=== PATIENT | female | born 1955 | race Asian ===

== ENCOUNTER 2016-09-26 10:07 | Outpatient (CLI) | payer OTHER ==
--- NOTE | 2016-09-28 07:42 | DEXA Report ---
DEXA SCAN: 09/26/2016 CLINICAL INDICATION: Postmenopausal. TECHNIQUE: Dual energy x-ray absorptiometry (DXA) was performed on a [employer] system. Regions measured are the AP spine, femoral neck, and, if needed, forearm. COMPARISON: None. In accordance with the International Society for Clinical Densitometry (ISCD) guidelines, data from previous exams may be reanalyzed using current recommendations and techniques. This is done to allow a more accurate basis for comparison with the current study. FINDINGS: The data for the lumbar spine is as follows: REGION BMD (g/cm/cm) T-SCORE Z-SCORE L1 0.957 -1.4 0.0 L2 0.974 -1.9 -0.5 L3 1.013 -1.6 -0.2 L4 0.982 -1.8 -0.4 TOTAL 0.982 -1.6 -0.3 NOTE: All evaluable vertebrae are used for classification. The data for the hip is as follows: REGION BMD (g/cm/cm) T-SCORE Z-SCORE Neck 0.827 -1.5 -0.2 TOTAL 0.852 -1.2 -0.2 NOTE: The femoral neck or total proximal femur, whichever is lowest, is used for classification. IMPRESSION: THE WHO CLASSIFICATION BASED ON THE INTERNATIONAL REFERENCE STANDARD IS OSTEOPENIA. THE FRACTURE RISK IS INCREASED. RECOMMENDATION: Patients with diagnosis of osteoporosis or osteopenia should have regular bone mineral density assessment. For those eligible for Medicare, routine testing is allowed once every 2 years. Testing frequency can be increased for patients who have rapidly progressing disease or for those who are receiving medical therapy to restore bone mass. COMMENT: World Health Organization (WHO) definitions for osteoporosis and osteopenia: NORMAL BMD: T-score at -1.0 or higher, fracture risk is low. OSTEOPENIA BMD: T-score between -1.0 and -2.5, fracture risk is increased. OSTEOPOROSIS BMD: T-score at -2.5 or lower, fracture risk high. National Osteoporosis Foundation recommends: 1. Obtain adequate dietary calcium (at least 1200 mg per day) and vitamin D (400 -800 international units per day). 2. Participate, as appropriate, in regular weightbearing and muscle- strengthening exercise. 3. Avoid tobacco use and reduce alcohol and caffeine intake. 4. For more detailed information see the website at www.NOF.org. MTDD
== END 2016-09-26 10:08 | disposition home or self-care (01) ==
LOC: DI 10:07
PROVIDERS: ATTEND Family Medicine
DX: Z13.820 Encounter for screening for osteoporosis (principal); M85.89 Other specified disorders of bone density and structure, multiple sites
CPT/HCPCS: 77080

== ENCOUNTER 2017-08-02 12:25 | Emergency (ER) | payer OTHER ==
[2017-08-02 13:28] LABS: BASOPHILS % (AUTO) 0.4 %; HGB - HEMOGLOBIN 11.1 g/dL (12.0-16.0); LYMPHOCYTES # (AUTO) 0.3 10^3/uL (1.5-3.5); LYMPHOCYTES % (AUTO) 5.6 %; MEAN CORPUSCULAR HEMOGLOBIN 18.9 pg (27.0-31.0); MEAN CORPUSCULAR HGB CONC 31.9 g/dL (32.0-36.0); MEAN CORPUSCULAR VOLUME 59.1 fL (81.0-99.0); MEAN PLATELET VOLUME 8.6 fL (7.9-10.8); MONOCYTES # (AUTO) 0.9 10^3/uL (0.0-1.0); MONOCYTES % (AUTO) 17.6 %; NEUTROPHILS # (AUTO) 3.8 10^3/uL (1.5-6.6); NEUTROPHILS % (AUTO) 76.4 %; PLT - PLATELET COUNT 121 10^3/uL (130-450); RED BLOOD COUNT 5.89 10^6/uL (4.20-5.40); RED CELL DISTRIBUTION WIDTH 15.6 % (12.0-15.0)
[2017-08-02 13:36] LABS: ALBUMIN/GLOBULIN RATIO 1.1 (1.0-2.2); CALCIUM 8.8 mg/dL (8.5-10.3); CREATININE 0.8 mg/dL (0.4-1.0); TOTAL PROTEIN 7.5 g/dL (6.7-8.2)
[2017-08-02 14:33] LABS: BILIRUBIN,URINE NEGATIVE (NEGATIVE); GLUCOSE, URINE (UA) NEGATIVE (NEGATIVE); KETONES,URINE (UA) NEGATIVE (NEGATIVE); LEUKOCYTE ESTERASE, URINE NEGATIVE (NEGATIVE); NITRITE,URINE NEGATIVE (NEGATIVE); OCCULT BLOOD,URINE NEGATIVE (NEGATIVE); PROTEIN,URINE 30 mg/dL (NEGATIVE); UROBILINOGEN,URINE 0.2 (NORMAL) E.U./dL (NORMAL)
[2017-08-02 14:34] LABS: CLARITY,URINE CLEAR (CLEAR)
[2017-08-02 14:41] LABS: BACTERIA,URINE Many /HPF (None Seen); RBC,URINE 0-5 /HPF (0-5); SQUAMOUS EPITHELIAL CELL,UR MANY Squamous (<= Few)
[2017-08-02 14:42] LABS: MUCUS,URINE Marked Strands
[2017-08-02] MEDS ORDERED: cefTRIAXone 1 GM VIAL IM STA (15:13)
[2017-08-02] MEDS ORDERED: LIDOCAINE 1% 2 ML VIAL SUBQ ONE (15:13)
[2017-08-02] MEDS ORDERED: KETOROLAC 60 MG/2 ML VIAL IM STA (15:13)
[2017-08-02] MEDS ORDERED: SODIUM CHLORIDE 0.9% 1,000 ML IV ONE (15:15)
[2017-08-02] MEDS ORDERED: KETOROLAC 60 MG/2 ML VIAL IVP STA (15:15)
[2017-08-02] MEDS ORDERED: CIPROFLOXACIN 400 MG/200 ML 200 ML IV ONE (15:16)
--- NOTE | 2017-08-02 17:03 | ED Physician Documentation ---
History of Present Illness - Stated complaint Stated Complaint: R SIDE PX/FEVER/CHILLS - Chief complaint Chief Complaint: Fever - History obtained from History obtained from: Patient, Family - History of Present Illness Timing: Yesterday Pain level max: 8 Pain level now: 8 Improved by: tylenol Worsened by: nothing - Additonal information Additional information: Patient is a 62-year-old female who presents to the emergency department with right flank pain for the past 2 days. Also fevers and chills. Has had mild dysuria and increased urinary frequency. No hematuria. No nausea or vomiting. Review of Systems Ten Systems: 10 systems reviewed and negative Constitutional: reports: Fever, Chills Ears: denies: Ear pain Nose: denies: Rhinorrhea / runny nose, Congestion Throat: denies: Sore throat Cardiac: denies: Chest pain / pressure Respiratory: denies: Cough GI: denies: Nausea, Vomiting, Diarrhea, Hematemesis, Bloody / black stool : reports: Dysuria, Frequency Skin: denies: Rash Musculoskeletal: denies: Neck pain, Back pain Neurologic: denies: Focal weakness, Numbness, Headache PD PAST MEDICAL HISTORY - Past Medical History Past Medical History: No - Past Surgical History Past Surgical History: Yes /PACKING INSPECTOR: Hysterectomy - Present Medications Home Medications: Ambulatory Orders Medication Instructions Recorded Confirmed Ciprofloxacin HCl [Cipro] 500 mg PO BID #20 tablet 08/02/17 Meloxicam [Mobic] 7.5 mg PO BID PRN #20 tablet 08/02/17 - Allergies Allergies/Adverse Reactions: Allergies Allergy/AdvReac Type Severity Reaction Status Date / Time amoxicillin Allergy Mild Hives Verified 08/02/17 12:34 - Social History Does the pt smoke?: No Smoking Status: Never smoker Does the pt drink ETOH?: No Does the pt have substance abuse?: No - Immunizations Immunizations are current?: Yes PD ED PE NORMAL - Vitals Vital signs reviewed: Yes - General General: Alert and oriented X 3, No acute distress - HEENT HEENT: PERRL, Moist mucous membranes - Neck Neck: Supple, no meningeal sign - Cardiac Cardiac: RRR, Strong equal pulses - Respiratory Respiratory: No respiratory distress, Clear bilaterally - Abdomen Abdomen: Soft, Non tender, Non distended - Back Back: No spinal TTP, Other (R CVAT) - Derm Derm: Warm and dry - Extremities Extremities: No edema, No calf tenderness / cord - Neuro Neuro: Alert and oriented X 3 - Psych Psych: Normal mood, Normal affect Results - Vitals Vitals: Vital Signs - 24 hr 08/02/17 08/02/17 08/02/17 12:29 16:35 17:04 Temperature 38.8 C H 36.6 C Heart Rate 127 H 89 88 Respiratory 18 18 16 Rate Blood Pressure 128/68 118/57 L 133/60 H O2 Saturation 97 98 96 Oxygen O2 Source Room air - Labs Labs: Laboratory Tests 08/02/17 08/02/17 08/02/17 13:15 13:15 13:15 WBC 5.0 Corrected WBC Cancelled RBC 5.89 H Hgb 11.1 L Hct 34.8 L MCV 59.1 L MCH 18.9 L MCHC 31.9 L RDW 15.6 H Plt Count 121 L MPV 8.6 Neut # 3.8 Lymph # 0.3 L [place] # 0.9 Eos # 0.0 Baso # 0.0 Absolute Nucleated RBC 0.01 Total Counted Cancelled Neutrophils % (Manual) Cancelled Band Neuts % (Manual) Cancelled Lymphocytes % (Manual) Cancelled Reactive Lymphs % (Man) Cancelled Abnorm Lymph % (Manual) Cancelled Monocytes % (Manual) Cancelled Eosinophils % (Manual) Cancelled Basophils % (Manual) Cancelled Metamyelocytes % Cancelled Myelocytes % Cancelled Promyelocytes % Cancelled Blast Cells % Cancelled Plasma Cell % (Manual) Cancelled Other Cells % Cancelled Nucleated RBC % 0.1 Neutrophils # (Manual) Cancelled Lymphocytes # (Manual) Cancelled Monocytes # (Manual) Cancelled Eosinophils # (Manual) Cancelled Basophils # (Manual) Cancelled Nucleated RBCs Cancelled Differential Comment Cancelled RBC Morph Micro Appear 1+ SCHISTOCYTES Sodium 135 Potassium 3.9 Chloride 99 L Carbon Dioxide 27 Anion Gap 9.0 BUN 20 Creatinine 0.8 Estimated GFR (MDRD) 73 L Glucose 117 H Lactic Acid 1.0 Calcium 8.8 Total Bilirubin 1.0 AST 36 ALT 28 Alkaline Phosphatase 62 Total Protein 7.5 Albumin 4.0 Globulin 3.5 Albumin/Globulin Ratio 1.1 Lipase 62 H Urine Color Urine Clarity Urine pH Ur Specific [place] Urine Protein Urine Glucose (UA) Urine Ketones Urine Occult Blood Urine Nitrite Urine Bilirubin Urine Urobilinogen Ur Leukocyte Esterase Urine RBC Urine WBC Ur Squamous Epith Cells Urine Bacteria Urine Mucus Ur Microscopic Review Urine Culture Comments 08/02/17 14:24 WBC Corrected WBC RBC Hgb Hct MCV MCH MCHC RDW Plt Count MPV Neut # Lymph # [place] # Eos # Baso # Absolute Nucleated RBC Total Counted Neutrophils % (Manual) Band Neuts % (Manual) Lymphocytes % (Manual) Reactive Lymphs % (Man) Abnorm Lymph % (Manual) Monocytes % (Manual) Eosinophils % (Manual) Basophils % (Manual) Metamyelocytes % Myelocytes % Promyelocytes % Blast Cells % Plasma Cell % (Manual) Other Cells % Nucleated RBC % Neutrophils # (Manual) Lymphocytes # (Manual) Monocytes # (Manual) Eosinophils # (Manual) Basophils # (Manual) Nucleated RBCs Differential Comment RBC Morph Micro Appear Sodium Potassium Chloride Carbon Dioxide Anion Gap BUN Creatinine Estimated GFR (MDRD) Glucose Lactic Acid Calcium Total Bilirubin AST ALT Alkaline Phosphatase Total Protein Albumin Globulin Albumin/Globulin Ratio Lipase Urine Color YELLOW Urine Clarity CLEAR Urine pH 6.0 Ur Specific [place] >=1.030 H Urine Protein 30 H Urine Glucose (UA) NEGATIVE Urine Ketones NEGATIVE Urine Occult Blood NEGATIVE Urine Nitrite NEGATIVE Urine Bilirubin NEGATIVE Urine Urobilinogen 0.2 (NORMAL) Ur Leukocyte Esterase NEGATIVE Urine RBC 0-5 Urine WBC 0-3 Ur Squamous Epith Cells MANY Squamous H Urine Bacteria Many H Urine Mucus Marked Strands Ur Microscopic Review INDICATED Urine Culture Comments NOT INDICATED PD MEDICAL DECISION MAKING - ED course Complexity details: reviewed results, re-evaluated patient, considered differential, d/w patient, d/w family ED course: Patient is a 62-year-old female who presents to the emergency department with right flank pain and fever for the past 24 hours. No abdominal tenderness. No tenderness over the gallbladder or the appendix. She does have right CVA tenderness as well as some urinary symptoms. No acute laboratory findings. Normal lactate. Tachycardia resolved with pain medication and IV fluids. She is very well-appearing, nontoxic. Does have significant bacteriuria. Given Cipro IV here and will place her on ciprofloxacin for home. She does have a significant penicillin allergy/amoxicillin. Will have her follow-up closely with her doctor and return if she fails to improve in the next 24-48 hours for repeat evaluation. Patient and family counseled regarding signs and symptoms for which I believe and urgent re-evaluation would be necessary. Patient with good understanding of and agreement to plan and is comfortable going home at this time This document was made in part using voice recognition software. While efforts are made to proofread this document, sound alike and grammatical errors may occur. Departure - Departure Disposition: 01 Home, Self Care Clinical Impression: Pyelonephritis Fever Qualifiers: Fever type: unspecified Qualified Code(s): R50.9 - Fever, unspecified Condition: Good Instructions: ED Kidney Infec Female Follow-Up: MORENA DRAKE DO [Primary Care Provider] - Within 3 Days Prescriptions: Ciprofloxacin HCl [Cipro] 500 mg PO BID #20 tablet Meloxicam [Mobic] 7.5 mg PO BID PRN #20 tablet PRN Reason: Pain Comments: Take all medications until gone. Return if you worsen. You should continue to improve over the next 2 days. Discharge Date/Time: 08/02/17 17:15
[2017-08-02 17:05] VITALS: BP 133/60
== END 2017-08-02 17:15 | disposition home or self-care (01) ==
LOC: ED 12:25
DX: N12 Tubulo-interstitial nephritis, not specified as acute or chronic (principal); R00.0 Tachycardia, unspecified
CPT/HCPCS: 36415; 80053; 81001; 81003; 83605; 83690; 85025; 87086; 96365; 96375; 99283; 99284

== ENCOUNTER 2020-02-17 09:20 | Outpatient (CLI) | payer OTHER ==
--- NOTE | 2020-02-24 13:34 | Mammography Report ---
BILATERAL DIGITAL SCREENING MAMMOGRAM 3D/2D: 02/17/2020 CLINICAL: Routine screening. No prior exams were available for comparison. There are scattered fibroglandular elements in both br easts. No significant masses, calcifications, or other findings are seen in either breast. IMPRESSION: NEGATIVE There is no mammographic evidence of malignancy. A 1 year screening mammogram is recommended. This exam was interpreted at Station ID: [id number]. NOTE: For mammograms, a report in lay terms will be sent to the patient. Approximately 15% of breast malignancies will not be visualized mammographically. In the management of a palpable breast mass, a negative mammogram must not discourage biopsy of a clinically suspicious lesion. Electronically Signed By: Jorden manuel/librado:02/24/2020 09:00:02 ACR BI-RADS Category 1: Negative 3341F PARENCHYMAL PATTERN: (A) - The breast(s) demonstrate(s) scattered fibroglandular densities. BI-RADS CATEGORY: (1) - 1 RECOMMENDATION: (ANNUAL) - Recommend routine annual screening mammography. [id number] 1 year screening LATERALITY: (B)
== END 2020-02-17 09:21 | disposition home or self-care (01) ==
LOC: DI.N 09:20
DX: Z12.31 Encounter for screening mammogram for malignant neoplasm of breast (principal)

== ENCOUNTER 2021-03-08 15:27 | Outpatient (CLI) | payer OTHER ==
--- NOTE | 2021-03-09 14:03 | Mammography Report ---
BILATERAL DIGITAL SCREENING MAMMOGRAM 3D/2D: 03/08/2021 CLINICAL: Routine screening. Comparison is made to exams dated: 02/12/2019 mammogram - [facility] and 02/17/2020 m ammogram - [facility]. There are scattered fibroglandular elements in both breasts . No significant masses, calcifications, or other findings are seen in either breast. There has been no significant interval change. IMPRESSION: NEGATIVE There is no mammographic evidence of malignancy. A 1 year screening mammogram is recommended. This exam was interpreted at Station ID: [id number]. NOTE: For mammograms, a report in lay terms will be sent to the patient. Approximately 15% of breast malignancies will not be visualized mammographically. In the management of a palpable breast mass, a negative mammogram must not discourage biopsy of a clinically suspicious lesion. Electronically Signed By: Murphy Mercado acr/penrad:03/08/2021 16:13:24 ACR BI-RADS Category 1: Negative 3341F PARENCHYMAL PATTERN: (A) - The breast(s) demonstrate(s) scattered fibroglandular densities. BI-RADS CATEGORY: (1) - 1 RECOMMENDATION: (ANNUAL) - Recommend routine annual screening mammography. [id number] 1 year screening LATERALITY: (B)
== END 2021-03-08 15:28 | disposition home or self-care (01) ==
LOC: DI.N 15:27
DX: Z12.31 Encounter for screening mammogram for malignant neoplasm of breast (principal)

== ENCOUNTER 2021-07-19 10:47 | Outpatient (CLI) | payer OTHER ==
--- NOTE | 2021-07-19 11:42 | DEXA Report ---
PROCEDURE: Dexa Spine and/or Hip INDICATIONS: MENOPAUSAL TECHNIQUE: Dual energy x-ray absorptiometry (DXA) was performed on a [employer] System. Regions measur ed are the AP Spine, femoral neck, and if needed forearm. COMPARISON: 09/26/2016. FINDINGS: Lumbar Spine: Bone Mineral Density 0.950 g/cm/cm,T score -1.9. There is interval 3.3% decrease in total lumbar b one mineral density. Left Hip: Bone Mineral Density 0.851 g/cm/cm,T score -1.2 . There is interval 0.1% decrease in total left hip bone mineral density. Left Femoral Neck: Bone Mineral Density 0.839 g/cm/cm, T score -1.4. (T score greater or equal to -1.0: NORMAL) (T score from -1.1 to -2.4: OSTEOPENIA) (T score less than or equal to -2.5 to: OSTEOPOROSIS) Impression: Osteopenia. Patients with diagnosis of osteoporosis or osteopenia should have regular bone mineral density assess ment. For those eligible for Medicare, routine testing is allowed once every 2 years. Testing frequ ency can be increased for patients who have rapidly progressing disease or for those who are receivin g medical therapy to restore bone mass. Reviewed by: Catracho Pruett MD on 07/19/2021 11:41 AM PDT Approved by: Catracho Pruett MD on 07/19/2021 11:41 AM PDT Station ID: [id number]
== END 2021-07-19 10:48 | disposition home or self-care (01) ==
LOC: DI 10:47
PROVIDERS: ATTEND Internal Medicine
DX: N95.1 Menopausal and female climacteric states (principal); M85.89 Other specified disorders of bone density and structure, multiple sites

== ENCOUNTER 2022-03-15 14:34 | Outpatient (CLI) | payer OTHER ==
--- NOTE | 2022-03-16 13:32 | Mammography Report ---
BILATERAL DIGITAL SCREENING MAMMOGRAM 3D/2D: 03/15/2022 CLINICAL: Routine screening. Comparison is made to exams dated: 03/08/2021 mammogram, 02/17/2020 mammogram - [facility], and 02/12/2019 mammogram - [facility]. There are scattered areas of fibroglandular density in both breasts (category b / 25%-50% glandular t issue). No significant masses, calcifications, or other findings are seen in either breast. There has been no significant interval change. IMPRESSION: NEGATIVE There is no mammographic evidence of malignancy. A 1 year screening mammogram is recommended. Based on the Tyrer Cuzick model (a risk assessment model) the patients lifetime risk is 6.2% and her 10 year risk is 2.9%. According to the ACR, ACS, and NCCN guidelines, an annual breast MRI exam ambrose g with mammogram is recommended if the patients lifetime risk is 20% or greater. This exam was interpreted at Station ID: [id number]. NOTE: For mammograms, a report in lay terms will be sent to the patient. Approximately 15% of breast malignancies will not be visualized mammographically. In the management of a palpable breast mass, a negative mammogram must not discourage biopsy of a clinically suspicious lesion. Electronically Signed By: Jorden manuel/librado:03/15/2022 15:21:28 ACR BI-RADS Category 1: Negative 3341F PARENCHYMAL PATTERN: (A) - The breast(s) demonstrate(s) scattered fibroglandular densities. BI-RADS CATEGORY: (1) - 1 RECOMMENDATION: (ANNUAL) - Recommend routine annual screening mammography. [id number] 1 year screening LATERALITY: (B)
== END 2022-03-15 14:35 | disposition home or self-care (01) ==
LOC: DI.N 14:34
DX: Z12.31 Encounter for screening mammogram for malignant neoplasm of breast (principal)

== ENCOUNTER 2023-02-28 08:42 | Outpatient (CLI) | payer MEDICARE, OTHER ==
--- NOTE | 2023-03-01 09:39 | Mammography Report ---
BILATERAL DIGITAL SCREENING MAMMOGRAM 3D/2D: 02/28/2023 CLINICAL: Routine screening. Comparison is made to exams dated: 03/15/2022 mammogram, 03/08/2021 mammogram, 02/17/2020 mammogram - [facility], and 02/12/2019 mammogram - [facility]. Both breasts are heterogeneously dense, which may obscure small masses (category c / 51-75% glandular tissue). No significant masses, calcifications, or other findings are seen in either breast. There has been no significant interval change. IMPRESSION: NEGATIVE There is no mammographic evidence of malignancy. A 1 year screening mammogram is recommended. Based on the Tyrer Cuzick model (a risk assessment model) the patients lifetime risk is 9.0% and her 10 year risk is 4.3%. According to the ACR, ACS, and NCCN guidelines, an annual breast MRI exam ambrose g with mammogram is recommended if the patients lifetime risk is 20% or greater. This exam was interpreted at Station ID: [id number]. NOTE: For mammograms, a report in lay terms will be sent to the patient. Approximately 15% of breast malignancies will not be visualized mammographically. In the management of a palpable breast mass, a negative mammogram must not discourage biopsy of a clinically suspicious lesion. Electronically Signed By: Orin roberts/librado:02/28/2023 15:38:19 letter sent: No_Letter ACR BI-RADS Category 1: Negative 3341F PARENCHYMAL PATTERN: (D) - The breast(s) demonstrate(s) heterogeneously dense fibroglandular elissa llanos. BI-RADS CATEGORY: (1) - 1 Mammogram [id number] 1 year screening LATERALITY: (B)
== END 2023-02-28 08:43 | disposition home or self-care (01) ==
LOC: DI 08:42
DX: Z12.31 Encounter for screening mammogram for malignant neoplasm of breast (principal); R92.333 Mammographic heterogeneous density, bilateral breasts

== ENCOUNTER 2023-11-26 13:41 | Emergency (ER) | payer MEDICARE, OTHER ==
--- NOTE | 2023-11-26 14:22 | ED Physician Documentation ---
History of Present Illness - Stated complaint Stated Complaint: LWR BACK PX, FEMALE - Chief complaint Chief Complaint: Abd Pain - Additonal information Additional information: 68-year-old female with history of UTI about a year ago presents emergency department for generalized lower back pain and difficulty with urination and today started noticing some hematuria. 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 - Present Medications Home Medications: Ambulatory Orders Medication Instructions Recorded Confirmed Ciprofloxacin HCl [Cipro] 500 mg PO BID #20 tablet 08/02/17 Meloxicam [Mobic] 7.5 mg PO BID PRN #20 tablet 08/02/17 Nitrofurantoin [Macrobid] 100 mg PO BID 5 Days #9 cap 11/26/23 Phenazopyridine HCl [Pyridium] 200 mg PO TID #6 tablet 11/26/23 - Allergies Allergies/Adverse Reactions: Allergies Allergy/AdvReac Type Severity Reaction Status Date / Time amoxicillin Allergy Mild Hives Verified 11/26/23 14:00 ciprofloxacin [From Cipro] Allergy Unknown Verified 11/26/23 14:00 - Social History Does the pt smoke?: No Smoking Status: Never smoker Does the pt drink ETOH?: No Does the pt have substance abuse?: No - Immunizations Immunizations are current?: Yes - POLST Patient has POLST: No PD ED PE NORMAL - Vitals Vital signs reviewed: Yes - General General: Alert and oriented X 3, No acute distress, Well developed/nourished - Respiratory Respiratory: No respiratory distress, Clear bilaterally - Abdomen Abdomen: Normal bowel sounds, Soft, Non distended (suprapubic tenderness), No organomegaly - Back Back: No CVA TTP - Derm Derm: Normal color, Warm and dry, No rash Results - Vitals Vitals: Vital Signs - 24 hr 11/26/23 11/26/23 11/26/23 13:55 16:26 18:00 Temperature 36.4 C L 36.3 C L Heart Rate 95 74 92 Respiratory 17 18 18 Rate Blood Pressure 192/106 H 148/72 H 142/70 H O2 Saturation 99 100 99 11/26/23 18:49 Temperature 36.3 C L Heart Rate 92 Respiratory 18 Rate Blood Pressure 142/70 H O2 Saturation 99 Oxygen O2 Source Room air - Labs Labs: Laboratory Tests 11/26/23 13:50 Urine Color LT. YELLOW Urine Clarity CLEAR Urine pH 5.5 Ur Specific [place] <=1.005 Urine Protein NEGATIVE Urine Glucose (UA) NEGATIVE Urine Ketones NEGATIVE Urine Occult Blood LARGE H Urine Nitrite NEGATIVE Urine Bilirubin NEGATIVE Urine Urobilinogen 0.2 (NORMAL) Ur Leukocyte Esterase SMALL H Urine RBC 0-5 Urine WBC 4-5 Ur Squamous Epith Cells FEW Squamous Urine Bacteria Few Ur Microscopic Review INDICATED Urine Culture Comments INDICATED - Rads (name of study) CT KUB Relevant Findings:: Final report received, EMP independent interpretation of test, Other (No hydronephrosis known renal calculi normal appendix.) PD Medical Decision Making - ED course ED course: 68-year-old female presents emergency department for lower back pain dysuria and urinary urgency and frequency. Urinalysis does reveal small amount of leukocytes and a large amount of blood but given patient's symptoms we will treat for urinary tract infection. Urine was sent for further cultures and she was informed that she will be called with results in a few days if she needs to change antibiotics. Patient was started on nitrofurantoin and Pyridium here in the emergency department for UTI. Because patient was complaining of severe right CVA tenderness (a couple days ago, non today) and pain that has been going on for the last couple days we went ahead and did a CT KUB for further evaluation of possible renal calculi and CT KUB did not reveal any renal calculi fat stranding or any other concerning abnormalities. Patient does not have any CVA tenderness for myself today So low suspicious or concern about possible pyelonephritis. Symptoms well-controlled with Toradol. She is given return precautions told to follow-up primary care provider as needed all questions answered patient safe for discharge. Departure - Departure Disposition: Home, Self Care Clinical Impression: UTI (urinary tract infection), Hematuria Instructions: Phenazopyridine tablets, ED UTI Cystitis Female Prescriptions: Nitrofurantoin [Macrobid] 100 mg PO BID 5 Days #9 cap Phenazopyridine HCl [Pyridium] 200 mg PO TID #6 tablet Comments: Thank you for trusting us with your care, we have evaluated you for Your lower back pain and blood in your urine. It does appear that you have a urinary tract infection. We have started you on antibiotics here in the emergency department I sent a prescription to [facility] in [place] as this is the only pharmacy that is open on . Please come back in if you are having any worsening symptoms, fevers chills, or any other concerning emergent symptoms. Forms: PCP List Discharge Date/Time: 11/26/23 18:49
[2023-11-26 14:43] LABS: BILIRUBIN,URINE NEGATIVE (NEGATIVE); GLUCOSE, URINE (UA) NEGATIVE (NEGATIVE); KETONES,URINE (UA) NEGATIVE (NEGATIVE); LEUKOCYTE ESTERASE, URINE SMALL (NEGATIVE); NITRITE,URINE NEGATIVE (NEGATIVE); OCCULT BLOOD,URINE LARGE (NEGATIVE); PH,URINE 5.5 PH (5.0-7.5); PROTEIN,URINE NEGATIVE (NEGATIVE); UROBILINOGEN,URINE 0.2 (NORMAL) E.U./dL (NORMAL)
[2023-11-26 14:48] LABS: CLARITY,URINE CLEAR (CLEAR)
[2023-11-26 14:56] LABS: BACTERIA,URINE Few /HPF (None Seen); RBC,URINE 0-5 /HPF (0-5); SQUAMOUS EPITHELIAL CELL,UR FEW Squamous (<= Few)
[2023-11-26] MEDS: KETOROLAC 15 MG/ML VIAL IVP STA (15:05)
[2023-11-26 18:11] VITALS: BP 142/70; O2SAT 99
--- NOTE | 2023-11-26 18:20 | CT Report ---
PROCEDURE: KUB INDICATIONS: right flank pain TECHNIQUE: A CT scan of the abdomen and pelvis was performed without the use of intravenous contrast. Images we re recorded and evaluated at appropriate window settings. Reformats: coronal and sagittal. For radiat ion dose reduction, the following was used: automated exposure control, adjustment of mA and/or kV ac cording to patient size. COMPARISON: None. FINDINGS: Image quality: Diagnostic. Evaluation of the visceral organs is limited due to the lack of intravenou s contrast. Lower chest: Heart base is unremarkable. No basilar effusion or consolidation. Mild calcification of the thoracic aorta. No hiatal hernia. Liver: No contour-deforming mass. Gallbladder: No radiopaque stones or wall thickening. Biliary tree: No intrahepatic or extrahepatic dilation, accounting for age. Spleen: No splenomegaly. Pancreas: No pancreatic ductal dilation. Adrenals: No adrenal nodule. Kidneys and ureters: No hydronephrosis. No contour-deforming mass. Stomach, bowel and peritoneum: No gastric or small bowel dilation. No abnormal wall thickening. No pa thologic free fluid. Normal appendix (). No colonic diverticulosis. Lymph nodes: No central or retroperitoneal adenopathy. Vessels: No infrarenal aortic aneurysm. Mild calcification of the infrarenal abdominal aorta and lindsey c vessels. Reproductive organs: Hysterectomy. Bladder: Bladder wall thickness is normal, accounting for underdistention. No calcified bladder stone s. Pelvic lymph nodes: No adenopathy by size criteria. Bones: No aggressive osseous abnormality. No acute fractures. Other: Tiny fat-containing umbilical hernia. No inguinal hernia. IMPRESSION: Evaluation of the visceral organs is limited due to the lack of intravenous contrast. 1.No hydronephrosis or obstructing renal stone. 2.Normal appendix. Reviewed by: Pavithra Wyatt MD on 11/26/2023 5:19 PM VIN Approved by: Pavithra Wyatt MD on 11/26/2023 5:19 PM [email or web address] Station ID: [id number]
[2023-11-26] MEDS: NITROFURANTOIN MACRO 100 MG CAPSULE PO STA (18:44)
[2023-11-26] MEDS: PHENAZOPYRIDINE 100 MG TABLET PO STA (18:44)
== END 2023-11-26 18:49 | disposition home or self-care (01) ==
LOC: ED 13:41
DX: N39.0 Urinary tract infection, site not specified (principal); R31.9 Hematuria, unspecified
CPT/HCPCS: 74176; 81001; 87077; 87086; 87181; 96374; 99284; A9270; 81003